=== PATIENT | female | born 1990 | race Two or more races ===

== ENCOUNTER 2016-10-12 12:46 | Emergency (ER) | payer OTHER ==
[2016-10-12 13:30] VITALS: BP 95/65; PULSE 73; RESP 16; TEMP 98.2; O2SAT 100
[2016-10-12 14:29] LABS: COLOR YELLOW; LEUKOCYTE ESTERASE,URINE NEGATIVE (NEGATIVE); NITRITE,URINE NEGATIVE (NEGATIVE); PH,URINE 7.5 (5.0-7.5)
--- NOTE | 2016-10-12 14:38 | UCPHY ---
H & P Patient Type: New Chief Complaint Nursing Narrative: Pt. states vaginal pain x1 week. intermiitent. This am severe pain. Denies fever/chills,N/V/D.Concerned about IUD Time Seen by Provider: 10/12/16 13:32 HPI/ROS: CHIEF COMPLAINT: Pelvic pain HISTORY OF PRESENT ILLNESS: The patient presents to the emergency department with complaints of a one-week history of intermittent pelvic pain. The patient has had an IUD placed for the past 3 years. She has had some mild colicky pelvic pain this week. The patient specifically denies dysuria. She reports that her IUD strings are currently in place. The patient denies vaginal discharge or bleeding. The patient stated that she had fairly severe pain today which was bilateral in nature. At the time of my evaluation, that pain has entirely subsided. The patient currently denies any acute complaints. REVIEW OF SYSTEMS: A comprehensive 10 point review of systems is otherwise negative aside from elements mentioned in the history of present illness. Source: Patient Exam Limitations: No limitations - Personal History LMP (Females 10-55): IUD In Place - Medical/Surgical History Hx Asthma: No Hx Chronic Respiratory Disease: No Hx Diabetes: No Hx Cardiac Disease: No Hx Renal Disease: No Hx Cirrhosis: No Hx Alcoholism: No Hx HIV/AIDS: No Hx Splenectomy or Spleen Trauma: No Other PMH: Med hx-none. Surg-none - Family History Significant Family History: No pertinent family hx - Social History Smoking Status: Never smoked - Physical Exam Exam: General Appearance: Alert, no distress Eyes: Pupils equal and round no pallor or injection ENT, Mouth: Mucous membranes moist Respiratory: There are no retractions, lungs are clear to auscultation Cardiovascular: Regular rate and rhythm Gastrointestinal: Abdomen is soft and nontender, no masses, bowel sounds normal Neurological: A&O, normal motor function, normal sensory exam, normal cranial nerves Skin: Warm and dry, no rashes Musculoskeletal: Neck is supple nontender Extremities: symmetrical, full range of motion Constitutional: Initial Vital Signs Temperature (C) 36.8 C 10/12/16 13:22 Heart Rate 73 10/12/16 13:22 Respiratory Rate 16 10/12/16 13:22 Blood Pressure 95/65 L 10/12/16 13:22 O2 Sat (%) 100 10/12/16 13:22 O2 Delivery Mode Room Air Allergies/Adverse Reactions: No Known Allergies Allergy (Verified 10/12/16 13:22) Home Medications: Medication Instructions Recorded NK [No Known Home Meds] 10/12/16 Medical Decision Making ED Course/Re-evaluation: The patient presents to the urgent care for evaluation of intermittent pelvic pain with a severe episode of pelvic pain earlier today. At the time of my evaluation, her pain has entirely resolved. She has no abdominal or pelvic tenderness. The patient reports that her IUD strings are currently intact in normally located. The patient has a normal urinalysis and no evidence of a positive test. At this point time based upon her examination I do not feel that a stat emergent ultrasound needs to be performed as she has no ongoing pain or tenderness. The patient should follow up with her regular evening or night nurse supervisor tomorrow for any ongoing intermittent pain. She has been instructed to return to the ED or urgent care immediately for the recurrence of severe pain as we have not fully evaluated the possibility of a ovarian torsion based upon her current presentation today. We are unable to perform an ultrasound at our urgent care facility however I do not feel this needs to be done emergently based upon her current symptoms and exam. The patient is comfortable going home at this point time. Differential Diagnosis: Differential diagnosis considered includes ectopic , ovarian torsion, PID, urinary tract infection - Data Points Laboratory Results: 10/12/16 10/12/16 14:20 14:20 Urine Color YELLOW Urine Appearance CLEAR Urine pH 7.5 (5.0-7.5) Ur Specific [place] 1.015 (1.002-1.030) Urine Protein NEGATIVE (NEGATIVE) Urine Ketones NEGATIVE (NEGATIVE) Urine Blood NEGATIVE (NEGATIVE) Urine Nitrate NEGATIVE (NEGATIVE) Urine Bilirubin NEGATIVE (NEGATIVE) Urine Urobilinogen 0.2 EU EU (0.2-1.0) Ur Leukocyte Esterase NEGATIVE (NEGATIVE) Urine Glucose NEGATIVE (NEGATIVE) Urine Test NEGATIVE Departure - Departure Disposition: Home, Routine, Self-Care Clinical Impression: Pelvic pain Condition: Good Instructions: Pelvic Pain (ED) Additional Instructions: 1. Take Ibuprofen or Motrin 600 mg by mouth three times a day. 2. Please return to the emergency department immediately for severe pelvic pain , fever, vomiting as a emergent ultrasound may be required. 3. Please follow up with your regular evening or night nurse supervisor at [facility] for a recheck this week for any ongoing symptoms. Referrals: NONE,[facility] [Other] - As per Instructions - PQRS PQRS Measurement: Not applicable
== END 2016-10-12 15:09 | disposition home or self-care (01) ==
LOC: CED 12:46
DX: R10.2 Pelvic and perineal pain (principal)
CPT/HCPCS: 81003-PO; 81025-PO; G0463-PO